=== PATIENT | male | born 1935 | race Hispanic/Latino ===

== ENCOUNTER 2017-01-09 07:32 | Outpatient (CLI) | payer MEDICARE ==
[2017-01-09 08:22] LABS: Cardiac Risk 2.3 (Less than 4.5)
[2017-01-09 08:38] LABS: Thyroid Stimulating Hormone 1.9519 uIU/mL (0.35-4.94)
[2017-01-09 17:57] LABS: Ferritin 36.44 ng/mL (22-322)
[2017-01-09 18:14] LABS: Folate (Folic Acid) 16.1 ng/mL (7.0-31.4)
== END 2017-01-09 07:33 ==
LOC: MADLABBHPM 07:32
PROVIDERS: ATTEND Family Medicine
DX: E78.2 Mixed hyperlipidemia (principal); E11.9 Type 2 diabetes mellitus without complications
CPT/HCPCS: 36415; 80061; 82607; 82728; 82746; 83540; 84443

== ENCOUNTER 2017-04-01 07:57 | Outpatient (CLI) | payer MEDICARE ==
[2017-04-01 08:23] LABS: Hemoglobin A1c 7.1 % (4.0-6.0)
[2017-04-01 08:51] LABS: ALT (SGPT) 27 U/L (0-55); AST (SGOT) 48 U/L (5-34); Albumin 4.2 g/dL (3.4-4.8); Alkaline Phosphatase 59 U/L (40-150); Anion Gap 15 mmol/L (10-20); BUN (Urea Nitrogen) 10 mg/dL (8.4-25.7); Bilirubin, Total 0.9 mg/dL (0.2-1.2); Calc. Creatinine Clearance 0 mL/min (70-130); Calcium 9.2 mg/dL (7.8-10.44); Carbon Dioxide 26 mmol/L (23-31); Chloride 101 mmol/L (98-107); Estimated GFR-MDRD 80; Globulin 3.5 g/dL (2.4-3.5); Glucose 144 mg/dL (83-110); Potassium 4.2 mmol/L (3.5-5.1); Protein, Total 7.7 g/dL (5.8-8.1); Sodium 138 mmol/L (136-145)
== END 2017-04-01 07:58 ==
LOC: MADLABBHPM 07:57
PROVIDERS: ATTEND Family Medicine
DX: E03.9 Hypothyroidism, unspecified (principal); E11.9 Type 2 diabetes mellitus without complications
CPT/HCPCS: 36415; 80053; 83036; 84443

== ENCOUNTER 2018-03-12 09:14 | Outpatient (CLI) | payer MEDICARE ==
--- NOTE | 2018-03-12 09:44 | RAD ---
TWO VIEWS OF THE CHEST: Comparison: None. History: Acute bronchitis with anorexia and weight loss. FINDINGS: Two views of the chest shows a normal sized cardiomediastinal silhouette. The patient is status post sternotomy. There is no evidence of consolidation, mass, or pleural effusion. Degenerative changes ar e seen in the spine. IMPRESSION: No evidence of acute cardiopulmonary disease. POS: [facility]
== END 2018-03-12 09:15 | disposition home or self-care (01) ==
LOC: MADRAD 09:14
PROVIDERS: ATTEND Family Medicine
DX: J20.9 Acute bronchitis, unspecified (principal); R63.0 Anorexia; R63.4 Abnormal weight loss
CPT/HCPCS: 71046

== ENCOUNTER 2021-06-23 14:05 | Outpatient (CLI) | payer MEDICARE | END 2021-06-23 14:06 | disposition home or self-care (01) | LOC: MADRAD 14:05 | PROVIDERS: ATTEND Family Medicine | DX: S20.222A Contusion of left back wall of thorax, initial encounter (principal) | CPT/HCPCS: 71046 ==

== ENCOUNTER 2021-07-19 09:25 | Outpatient (CLI) | payer MEDICARE ==
[2021-07-19 10:17] LABS: Anion Gap 15 mmol/L (10-20); BUN (Urea Nitrogen) 13 mg/dL (8.4-25.7); Calc. Creatinine Clearance 0 mL/min (70-130); Calcium 9.5 mg/dL (7.8-10.44); Carbon Dioxide 28 mmol/L (23-31); Chloride 95 mmol/L (98-107); Glucose 108 mg/dL (83-110); Potassium 5.1 mmol/L (3.5-5.1); Sodium 133 mmol/L (136-145)
== END 2021-07-19 09:26 | disposition home or self-care (01) ==
LOC: MADLAB 09:25
PROVIDERS: ATTEND Family Medicine
DX: S22.42XD Multiple fractures of ribs, left side, subsequent encounter for fracture with routine healing (principal); E87.1 Hypo-osmolality and hyponatremia; J98.11 Atelectasis; W19.XXXD Unspecified fall, subsequent encounter
CPT/HCPCS: 36415; 80048

== ENCOUNTER 2021-07-21 10:07 | Outpatient (CLI) | payer MEDICARE | END 2021-07-21 10:08 | disposition home or self-care (01) | LOC: MADLAB 10:07 → MADCT 10:08 | PROVIDERS: ATTEND Family Medicine | DX: S22.42XA Multiple fractures of ribs, left side, initial encounter for closed fracture (principal); J90 Pleural effusion, not elsewhere classified; J98.11 Atelectasis; S20.222A Contusion of left back wall of thorax, initial encounter; K80.20 Calculus of gallbladder without cholecystitis without obstruction; S22.030A Wedge compression fracture of third thoracic vertebra, initial encounter for closed fracture | CPT/HCPCS: 71250 ==

== ENCOUNTER 2021-07-28 07:29 | Outpatient (CLI) | payer MEDICARE | END 2021-07-28 07:30 | disposition home or self-care (01) | LOC: MADRAD 07:29 | PROVIDERS: ATTEND Family Medicine | DX: J98.11 Atelectasis (principal); J90 Pleural effusion, not elsewhere classified | CPT/HCPCS: 71046 ==

== ENCOUNTER 2021-08-25 08:47 | Outpatient (CLI) | payer MEDICARE | END 2021-08-25 08:48 | disposition home or self-care (01) | LOC: MADLAB 08:47 → MADRAD 08:48 | PROVIDERS: ATTEND Family Medicine | DX: S22.42XA Multiple fractures of ribs, left side, initial encounter for closed fracture (principal); S20.222A Contusion of left back wall of thorax, initial encounter; J90 Pleural effusion, not elsewhere classified; J98.11 Atelectasis | CPT/HCPCS: 71046 ==

== ENCOUNTER 2021-10-31 09:43 | Outpatient (CLI) | payer MEDICARE ==
[2021-10-31 10:14] LABS: ALT (SGPT) 18 U/L (8-55); AST (SGOT) 52 U/L (5-34); Albumin 3.9 g/dL (3.4-4.8); Alkaline Phosphatase 213 U/L (40-110); Anion Gap 14 mmol/L (10-20); BUN (Urea Nitrogen) 9 mg/dL (8.4-25.7); Bilirubin, Total 1.1 mg/dL (0.2-1.2); Calc. Creatinine Clearance 0 mL/min (70-130); Calcium 9.4 mg/dL (7.8-10.44); Carbon Dioxide 29 mmol/L (23-31); Cardiac Risk 2.7 (Less than 4.5); Chloride 100 mmol/L (98-107); Cholesterol 150 mg/dl (< 200 Desired); Globulin 3.4 g/dL (2.4-3.5); Glucose 118 mg/dL (83-110); HDL Cholesterol 56 mg/dL (>60 Neg Risk); LDL Cholesterol, Calculated 79 mg/dL; Potassium 4.9 mmol/L (3.5-5.1); Protein, Total 7.3 g/dL (5.8-8.1); Sodium 138 mmol/L (136-145); Triglycerides 76 mg/dL (Less than 150)
[2021-10-31 17:42] LABS: Hemoglobin A1c 6.2 % (4.0-6.0)
== END 2021-10-31 09:44 | disposition home or self-care (01) ==
LOC: MADLAB 09:43
PROVIDERS: ATTEND Family Medicine
DX: E11.65 Type 2 diabetes mellitus with hyperglycemia (principal); E03.9 Hypothyroidism, unspecified; E78.2 Mixed hyperlipidemia; E87.1 Hypo-osmolality and hyponatremia
CPT/HCPCS: 36415; 80053; 80061; 83036; 84443

== ENCOUNTER 2022-03-22 11:17 | Outpatient (CLI) | payer MEDICARE ==
[2022-03-22 11:47] LABS: #Basophils 0.1 thou/uL (0.0-0.2); #Lymphocytes 1.1 thou/uL (1.20-3.40); #Monocytes 0.8 thou/uL (0.11-0.59); #Neutrophils 7.5 thou/uL (1.40-6.50); %Basophils 0.8 % (0.0-1.0); %Eosinophils 0.5 % (0.0-10.0); %Lymphocytes 11.8 % (21.0-51.0); %Monocytes 8.4 % (0.0-10.0); %Neutrophils 78.5 % (42.0-75.0); Hemoglobin 15.6 g/dL (14.0-18.0); Mean Corpuscular HGB CONC 32.5 g/dL (32.0-36.0); Mean Corpuscular Hemoglobin 34.1 pg (27.0-31.0); Mean Corpuscular Volume 104.8 fL (78.0-98.0); Mean Platelet Volume 8.8 fL (7.4-10.4); Platelet Count 113 thou/uL (130-400); Red Blood Cell (RBC) Count 4.57 mill/uL (4.70-6.10); White Blood Cell (WBC) Count 9.6 thou/uL (4.8-10.8)
[2022-03-22 11:49] LABS: INR-International Normal Ratio 1.1; Prothrombin Time 14.5 sec (12.0-14.7)
[2022-03-22 11:50] LABS: PTT 33.5 sec (22.9-36.1)
[2022-03-22 12:09] LABS: ALT (SGPT) 36 U/L (8-55); AST (SGOT) 142 U/L (5-34); Albumin 3.3 g/dL (3.4-4.8); Alkaline Phosphatase 433 U/L (40-110); Anion Gap 15 mmol/L (10-20); BUN (Urea Nitrogen) 17 mg/dL (8.4-25.7); Bilirubin, Total 2.5 mg/dL (0.2-1.2); Calc. Creatinine Clearance 0 mL/min (70-130); Calcium 10.2 mg/dL (7.8-10.44); Carbon Dioxide 28 mmol/L (23-31); Chloride 96 mmol/L (98-107); Globulin 3.8 g/dL (2.4-3.5); Glucose 109 mg/dL (83-110); Lipase 13 U/L (8-78); Potassium 5.1 mmol/L (3.5-5.1); Protein, Total 7.1 g/dL (5.8-8.1); Sodium 134 mmol/L (136-145)
[2022-03-22 12:24] LABS: Large Platelets SLIGHT; Macrocytosis SLIGHT = 6-15 cells (100X) (0-5/hpf); Platelet Morphology Comment Appears Decreased
[2022-03-22 17:01] LABS: Vitamin B12 654 pg/mL (211-911)
[2022-03-22 17:13] LABS: HBCM Index 0.09 S/CO (0-0.79); HBSAg Index 0.21 S/CO (0-0.99); Hep A IgM AB Non-Reactive (NonReactive); Hep A IgM S/CO 0.23 S/CO (0-0.79); Hep B Surf Ag Non-Reactive S/CO (NonReactive); Hep C IgG Ab Non-Reactive (NonReactive); Hep C Index 0.08 S/CO (0-0.79); Hepatitis B Core IgM Abs Non-Reactive (NonReactive)
== END 2022-03-22 11:18 | disposition home or self-care (01) ==
LOC: MADLAB 11:17
PROVIDERS: ATTEND Family Medicine
DX: D75.89 Other specified diseases of blood and blood-forming organs (principal); R10.13 Epigastric pain; R14.0 Abdominal distension (gaseous); R74.8 Abnormal levels of other serum enzymes
CPT/HCPCS: 36415; 80053; 80074; 82150; 82607; 82746; 83690; 85025; 85610; 85730

== ENCOUNTER 2022-03-22 12:08 | Outpatient (CLI) | payer MEDICARE ==
[~2022-03-22 12:08] MED LIST: Iopamidol 370 76% 100 ML VIAL ONE
== END 2022-03-22 12:09 | disposition home or self-care (01) ==
LOC: MADLAB 12:08 → MADCT 12:09
PROVIDERS: ATTEND Family Medicine
DX: R10.13 Epigastric pain (principal); R14.0 Abdominal distension (gaseous); R74.8 Abnormal levels of other serum enzymes; J90 Pleural effusion, not elsewhere classified; K80.20 Calculus of gallbladder without cholecystitis without obstruction; M89.9 Disorder of bone, unspecified; K76.9 Liver disease, unspecified; R18.8 Other ascites
CPT/HCPCS: 36415; 74177; 80053; 80074; 82150; 82607; 82746; 83690; 85025; 85610; 85730; Q9967